=== PATIENT | male | born 1955 | race African-American/Black ===

== ENCOUNTER 2016-08-29 09:13 | Outpatient (CLI) ==
--- NOTE | 2016-08-29 10:14 | US ---
EXAM: Renal ultrasound HISTORY: Hypertension COMPARISON: Kidney ultrasound 04/29/2012 TECHNIQUE: Sonographic evaluation of the kidneys was performed with limited Doppler evaluation. FINDINGS: The right kidney measures 9.2 x 3.5 x 4.8 cm with renal cortical thickness of 1.1 cm. Th ere is normal echogenicity and color Doppler flow. No stone or hydronephrosis is identified. The left kidney measures 6.7 x 4.0 x 4.1 cm with renal cortical thickness of 1.0 cm. There is ortega l echogenicity and color Doppler flow. No stone or hydronephrosis is identified. Limited evaluation of the urinary bladder is unremarkable. Ureteral jets are not visualized. IMPRESSION: No sonographic abnormality of the kidneys or visualized stone.
== END 2016-08-29 09:14 | disposition home or self-care (01) ==
LOC: RAD 09:13 → LAB 09:14
PROVIDERS: ATTEND Internal Medicine
DX: I10 Essential (primary) hypertension (principal); R88.8 Abnormal findings in other body fluids and substances
CPT/HCPCS: 76770

== ENCOUNTER 2016-09-04 11:58 | Outpatient (CLI) ==
[2016-09-05 08:38] LABS: REF CREATININE 1.58 mg/dL (0.76-1.27); URINE TOTAL PROTEIN 24 HR 17.6 mg/dL (Not Estab.)
== END 2016-09-04 11:59 | disposition home or self-care (01) ==
LOC: LAB 11:58
PROVIDERS: ATTEND Internal Medicine
DX: I10 Essential (primary) hypertension (principal); R88.8 Abnormal findings in other body fluids and substances
CPT/HCPCS: 36415; 81050; 82575; 84156

== ENCOUNTER 2017-12-25 14:23 | Outpatient (CLI) | END 2017-12-25 14:24 | disposition home or self-care (01) | LOC: LAB 14:23 | PROVIDERS: ATTEND Internal Medicine | DX: E78.5 Hyperlipidemia, unspecified (principal); I10 Essential (primary) hypertension; D64.9 Anemia, unspecified; Z12.5 Encounter for screening for malignant neoplasm of prostate | CPT/HCPCS: 36415; 80053; 80061; 82607; 83036; 84436; 84443; 85025 ==

== ENCOUNTER 2018-06-29 13:56 | Outpatient (CLI) | END 2018-06-29 13:57 | disposition home or self-care (01) | LOC: LAB 13:56 | PROVIDERS: ATTEND Internal Medicine | DX: E78.5 Hyperlipidemia, unspecified (principal); I10 Essential (primary) hypertension; J44.9 Chronic obstructive pulmonary disease, unspecified; E53.8 Deficiency of other specified B group vitamins | CPT/HCPCS: 36415; 80053; 80061; 83036; 84439; 84443; 85025 ==